=== PATIENT | male | born 1930 | race Caucasian/White ===

== ENCOUNTER 2016-08-22 20:25 | Observation (INO) | payer MEDICARE, OTHER ==
[2016-08-22] MEDS ORDERED: SURGICEL 3X4 1 EACH PACKET ONE (20:47)
[2016-08-22 21:23] LABS: ABSOLUTE NEUTROPHIL COUNT 11.6 K/mm3 (1.8-7.7); BASO # 0.1 K/mm3 (0.0-0.2); BASO % 0.6 % (0.2-1.0); EOS # 0.1 (0.0-0.5); EOS % 0.7 % (0.9-2.9); HEMATOCRIT 43.8 % (32.0-52.0); HEMOGLOBIN 14.8 gm/l (14.0-18.0); IMM NEUT # 0.2 K/mm3 (0-0.2); IMM NEUT% 1.4 % (0-1); LYMPH # 2.6 (1.0-4.8); LYMPH % 16.5 % (15-45); MEAN CORPUSCULAR HEMOGLOBIN 31.1 pg (27.0-31.0); MEAN CORPUSCULAR HGB CONC 33.8 g/dl (33.0-37.0); MEAN PLATELET VOLUME 8.7 fl (7.4-10.4); MONO # 1.4 (0.0-0.8); MONO % 8.5 % (4-12); NEUT % 72.3 % (43-75); PLATELET COUNT 377 K/mm3 (130-400); RED CELL DISTRIBUTION WIDTH 12.8 % (11.5-14.5)
[2016-08-22 21:41] LABS: ALB/GLOB RATIO 1.2 (>1.0); ALBUMIN 3.6 gm/dL (3.5-5.7); CALCIUM 8.6 mg/dL (8.6-10.3)
[2016-08-22] MEDS ORDERED: PROTHROMBIN COMPLX (PCC HUMAN) 500 UNITS KIT IV ONE (22:00)
[2016-08-23] MEDS ORDERED: QUETIAPINE FUMARATE 25 MG TABLET PO PRN (00:32)
[2016-08-23] MEDS ORDERED: BLISTEX LIPSTICK 1 EACH TP PRN (00:33)
[2016-08-23] MEDS ORDERED: ACETAMINOPHEN 325 MG TABLET PO PRN (00:33)
[2016-08-23] MEDS ORDERED: MENTHOL/CETYLPYRD 1 EACH LOZENGE PO PRN (00:33)
[2016-08-23] MEDS ORDERED: SODIUM CHLORIDE 0.9% 100 ML IV PRN (00:33)
[2016-08-23 02:26] VITALS: BMI 29.1
--- NOTE | 2016-08-23 06:42 | HP ---
Palomo Milan ADMIT DATE: 08/23/2016 CHIEF COMPLAINT: Bleeding. HISTORY OF PRESENT ILLNESS: Palomo is an 86-year-old male with advanced dementia and aphasia secondary to a previous cerebrovascular accident. 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 After the surgery he was brought home. He then had bleeding from the surgical site that was apparently not able to be controlled at home. His daughter and then brought him to the emergency room. In the emergency room, he was treated with pressure dressings with continued bleeding. He is on Eliquis so they gave him a dose of Kcentra in the emergency room. The family was not comfortable bring him home so it was elected to prefer him to observation overnight under the hospitalist service to assist with dressing changes as needed. REVIEW OF SYSTEMS: Unobtainable. Patient is demented and aphasic and family are not available at this hour. PAST MEDICAL HISTORY: 1. Dementia with behavioral disturbances as per the chart, this is apparently a vascular type dementia. 2. Squamous cell carcinoma status post Mohs procedure on 08/22/2016. 3. Atrial fibrillation on Eliquis. 4. Chronic obstructive pulmonary disease. 5. Hypertension. 6. Hyperlipidemia. 7. 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 8. Obstructive sleep apnea not on CPAP. PAST SURGICAL HISTORY: Mohs procedure earlier today as noted above. ALLERGIES: No known drug allergies. CURRENT MEDICATIONS: As per the chart: 1. Seroquel 25 mg tablet one half to one tablet by mouth bedtime as needed. 2. Lisinopril 10 mg by mouth daily. 3. Tramadol 50 mg by mouth twice daily as needed. 4. ProAir HFA 2 puffs every 4 hours as needed. 5. Eliquis 2.5 mg by mouth daily. 6. Lipitor 40 mg by mouth daily. 7. Metoprolol 50 mg by mouth twice daily. 8. Aspirin 81 mg by mouth daily. SOCIAL HISTORY: He lives at home with his and apparently a daughter as a caregiver. He was in [facility] until about two months ago when he left at the family's request. He does apparently have 24 hour caregivers though, further details are unavailable. FAMILY HISTORY: Unknown. OBJECTIVE: VITAL SIGNS: Stable. He is afebrile. GENERAL: This is a thin elderly male. He demented and aphasic, but he is calm and in no acute distress. HEENT: Bulky dressing over the left side of the cheek with wrap over the head and under the chin to keep it in place. I did not remove this as it had just been placed in the emergency room. LUNGS: Clear. HEART: Regular. ABDOMEN: Soft. EXTREMITIES: No edema. ASSESSMENT: 1. Surgical site bleeding from a left facial Mohs procedure. 2. Multiple other medical problems appear to be at baseline. PLAN: We will go ahead and leave the dressing on tonight. In the morning we will change it and be sure that it is in satisfactory condition otherwise, will continue him on his regular medications with the exception of holding his Eliquis and holding the aspirin. I anticipate that he will be discharged home tomorrow. No deep venous thrombosis prophylaxis. JOB: [id number]
[2016-08-23 07:59] LABS: ABSOLUTE NEUTROPHIL COUNT 7.4 K/mm3 (1.8-7.7); BASO % 0.4 % (0.2-1.0); EOS % 0.2 % (0.9-2.9); HEMATOCRIT 39.9 % (32.0-52.0); HEMOGLOBIN 13.7 gm/l (14.0-18.0); IMM NEUT # 0.2 K/mm3 (0-0.2); IMM NEUT% 1.4 % (0-1); LYMPH % 18.6 % (15-45); MEAN CELL VOLUME 90.1 fl (80.0-94.0); MEAN CORPUSCULAR HEMOGLOBIN 30.9 pg (27.0-31.0); MEAN CORPUSCULAR HGB CONC 34.3 g/dl (33.0-37.0); MEAN PLATELET VOLUME 9.3 fl (7.4-10.4); MONO # 1.1 (0.0-0.8); MONO % 9.9 % (4-12); NEUT % 69.5 % (43-75); PLATELET COUNT 248 K/mm3 (130-400); RED CELL DISTRIBUTION WIDTH 12.8 % (11.5-14.5)
[2016-08-23 08:05] VITALS: BP 133/91
[2016-08-23] MEDS ORDERED: METOPROLOL TARTRATE 50 MG TABLET PO SCH (09:00)
[2016-08-23] MEDS ORDERED: TRAMADOL HCL 50 MG TABLET PO SCH (09:00)
--- NOTE | 2016-08-23 12:57 | DS ---
Palomo Milan ADMIT DATE: 08/23/2016 DISCHARGE DATE: 08/23/2016 ADMIT DIAGNOSES: 1. Bleeding from surgical site left side of the face. 2. Multiple other medical problems at baseline. DISCHARGE DIAGNOSES: 1. Bleeding from surgical site left side of the face. 2. Multiple other medical problems at baseline. ADMIT HISTORY AND PHYSICAL: Please see my dictated note for details. 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 He was still taking his Eliquis and aspirin. After they got home that evening he was having uncontrolled bleeding, family became concerned, and brought him to the emergency room. In the emergency room the wound was redressed with continued bleeding. He was treated with Kcentra to reverse the Eliquis and we elected to prefer him to observation to the hospitalist service. HOSPITAL COURSE: He remained stable overnight. In the morning the bleeding had stopped. We redressed the wound with no difficulty. The patient was at his baseline otherwise. 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 We have instructed he and the family to discontinue taking his Eliquis and aspirin until instructed to resume by his physician. DISCHARGE MEDICATIONS: 1. Albuterol 2 puffs every 4 hours as needed. 2. Seroquel 12.5 to 25 mg by mouth every bedtime as needed. 3. Atorvastatin 40 mg by mouth daily. 4. Lisinopril 10 mg by mouth daily. 5. Metoprolol 50 mg by mouth twice daily. 6. Multivitamin daily. 7. Ultram 50 mg by mouth daily. 8. Eliquis hold until instructed to resume. 9. Aspirin hold until instructed to resume. DISCHARGE FOLLOW UP: Will be with Dr. Gomez of dermatology next week. Follow up with Dr. Doran as needed. JOB: [id number] CC: Dr. Jason Doran
== END 2016-08-23 14:30 | disposition home or self-care (01) ==
LOC: ED 20:25 → MS 22:16
PROVIDERS: ADMIT Family Medicine; ATTEND Family Medicine
DX: L76.21 Postprocedural hemorrhage of skin and subcutaneous tissue following a dermatologic procedure (principal); Y83.8 Other surgical procedures as the cause of abnormal reaction of the patient, or of later complication, without mention of misadventure at the time of the procedure; F03.91 Unspecified dementia, unspecified severity, with behavioral disturbance; R13.0 Aphagia; I48.91 Unspecified atrial fibrillation; J44.9 Chronic obstructive pulmonary disease, unspecified; I10 Essential (primary) hypertension; E78.5 Hyperlipidemia, unspecified; G47.33 Obstructive sleep apnea (adult) (pediatric)